=== PATIENT | male | born 1990 | race Two or more races ===

== ENCOUNTER 2025-06-09 22:00 | Emergency (ER) | payer SELFPAY ==
[2025-06-09 22:14] VITALS: BP 139/97; PULSE 99; RESP 18; TEMP 36.7; O2SAT 95; BMI 27.4
[2025-06-09 22:15] VITALS: BMI 27.4
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
== END 2025-06-09 23:10 ==
LOC: SERX 23:22
PROVIDERS: Emergency Provider Emergency Medicine
DX: Z02.89 Encounter for other administrative examinations (principal); F10.129 Alcohol abuse with intoxication, unspecified
CPT/HCPCS: 99281